=== PATIENT | female | born 1955 | race Caucasian/White ===

== ENCOUNTER → 2019-03-10 | Outpatient (CLI) | payer MEDICARE ==
--- NOTE | 2019-03-11 14:48 | RAD ---
DATE: 03/10/2019 EXAM: MAMMO ZAIDA SCREENING BILATERAL HISTORY: Routine screening COMPARISON: 09/02/2017 This study was interpreted with the benefit of Computerized Aided Detection (CAD). Breast Density: FATTY The breast parenchyma is primarily fatty replaced. Breast parenchyma level density A. FINDINGS: 2-D and 3-D tomosynthesis imaging was performed in CC and MLO projections. No new or enlarging breast nodules are seen. Benign type calcifications are again noted. No suspicious microcalcifications have developed. IMPRESSION: Stable mammograms without evidence of malignancy. BI-RADS CATEGORY: 2 BENIGN FINDING(S) RECOMMENDED FOLLOW-UP: 12M 12 MONTH FOLLOW-UP PQRS compliance statement: Patient information was entered into a reminder system with a target due date for the next mammogram. Mammography is a sensitive method for finding small breast cancers, but it does not detect them all and is not a substitute for careful clinical examination. A negative mammogram does not negate a clinically suspicious finding and should not result in delay in biopsying a clinically suspicious abnormality. "Our facility is accredited by the [employer]."
== END | disposition home or self-care (01) ==
LOC: MAMMO 13:07
PROVIDERS: ATTEND Family Medicine
DX: Z12.31 Encounter for screening mammogram for malignant neoplasm of breast (principal); N64.89 Other specified disorders of breast
CPT/HCPCS: 77063; 77067

== ENCOUNTER → 2019-04-07 | Outpatient (CLI) | payer MEDICARE ==
[~2019-04-07] MED LIST: ZOLPIDEM 5 MG TABLET. PO ONE
--- NOTE | 2019-04-08 13:38 | SLEEP ---
DATE OF STUDY: 04/07/2019 POLYSOMNOGRAM OBJECTIVE: The patient is a 64-year-old female with insomnia, snoring. Vernon sleep score 2. Height 5 feet 3 inches, weight 230 pounds and body mass index 41. INTERPRETATION: Sleep architecture is characterized by sleep efficiency of 31% across the 7.3 hours of recording time. There is absence of REM sleep. Sleep onset latency is 75 minutes. Respiratory monitoring shows a total of 71 events for an apnea-hypopnea index of 31.8 events per hour of sleep. The vast majority of these events are obstructive. The minimum oxygen saturation is 82%. Periodic limb movements of sleep occur at the rate of 30 per hour, 3 per hour associated with arousal. No cardiac arrhythmias are observed. IMPRESSION: Abnormal polysomnogram, showing obstructive sleep apnea and hypopnea, but the patient has a very poor sleep efficiency and does not achieve REM sleep, implying an independent problem with insomnia. Therefore, CPAP titration was not attempted. The patient did receive 5 mg of Ambien at the start of the study. RECOMMENDATIONS: 1. The patient could be returned for a CPAP titration study. 2. The insomnia should be addressed. 3. The patient should avoid sedatives and alcohol in general, though, and also pursue weight loss. Thank you for letting us help with the patient's care. RAJIV BENNETT MD DR: GIAN/nakul JOB#: [id number] / [id number] Dr. AMAURY Arambula MICHAEL MD
== END | disposition home or self-care (01) ==
LOC: RT 18:51
PROVIDERS: ATTEND Family Medicine
DX: G47.33 Obstructive sleep apnea (adult) (pediatric) (principal)
CPT/HCPCS: 95810

== ENCOUNTER → 2019-05-13 | Day surgery (SDC) | payer MEDICARE ==
[~2019-05-13] MED LIST changes: +ATOR40TA59 PO; +IV RINGERS,LACTATED 1000ML 1,000 ML IV SCH; +LISI1TAB7 PO; +PROPOFOL 20 ML IV ONE; -ZOLPIDEM 5 MG TABLET. PO ONE
[2019-05-13 09:26] VITALS: BP 102/53
== END ==
LOC: ENDOS 07:23
PROVIDERS: ATTEND Internal Medicine Gastroenterology
DX: Z12.11 Encounter for screening for malignant neoplasm of colon (principal); K57.30 Diverticulosis of large intestine without perforation or abscess without bleeding; K64.0 First degree hemorrhoids; F17.210 Nicotine dependence, cigarettes, uncomplicated; Z86.010 Personal history of colon polyps; Z72.89 Other problems related to lifestyle; Z90.49 Acquired absence of other specified parts of digestive tract; Z98.890 Other specified postprocedural states
CPT/HCPCS: G0105; J2704; 45378

== ENCOUNTER → 2019-06-03 | Outpatient (CLI) | payer MEDICARE ==
[2019-05-13 09:26] VITALS: BP 102/53
[~2019-06-03] MED LIST changes: -IV RINGERS,LACTATED 1000ML 1,000 ML IV SCH; -PROPOFOL 20 ML IV ONE; +ZOLPIDEM 5 MG TABLET. PO ONE
--- NOTE | 2019-06-04 12:55 | SLEEP ---
DATE OF STUDY: 06/03/2019 SLEEP STUDY ATTENDING PHYSICIAN: Richard Nava MD The patient is 64 years old, who weighs 232 pounds with a BMI of 43. The patient's Huntington score was 3. The patient had previous sleep study and was found to have severe CARLA at an AHI of 31.8 per hour. The patient returned for in-lab CPAP titration study. During the night study, the patient spent 419 minutes in bed and slept for 182 minutes with a low-sleep efficiency of 43%. Sleep latency was 71 minutes, which was prolonged with a REM latency of 205 minutes. Overall, sleep architecture showed normal stage 1 and stage 2 sleep, increased slow wave and reduced REM sleep. During the night study, the patient's EKG monitoring revealed an average heart rate of 81 beats per minute and no sustained arrhythmia was observed. PLMS were seen at index of 74 per hour and 7 per hour caused EEG arousal. The patient was started on CPAP at a pressure of 7-cm water as she was unable to tolerate lower pressure. Pressure was increased all the way up to 20-cm water. At that time, the patient's sleep apnea did improve; however, she could not tolerate pressure beyond 20-cm water and was unable to exhale. As a result, she was switched to BiPAP, but she could not return to sleep to have BiPAP titration. I would recommend the patient should be placed on an auto-BiPAP with a download followup. IMPRESSION: 1. Severe sleep apnea diagnosed by previous sleep study. 2. Severe periodic limb movements in sleep. 3. Reduced sleep efficiency of 43%, resulting from sleep onset and sleep maintenance insomnia. RECOMMENDATIONS: 1. Optimum CPAP pressure was not achieved on this split-night study despite reaching 20-cm water. The patient became intolerant to higher CPAP pressure and was having difficulty in exhaling against that pressure. I would recommend that the patient should be placed on auto-BiPAP at a maximum IPAP pressure of 24 with a minimum EPAP pressure of 18 with pressure support of 4. 2. The patient should have a download data in 30 days to assess the efficacy of the current BiPAP pressure. 3. PLMS can be treated with dopaminergic agonist agents if the patient is clinically symptomatic or has symptoms of restless legs during the day. 4. If the patient's insomnia persists despite effective use of BiPAP, then it should be treated according to the etiology. GIANFRANCO WOOD MD DR: SEUN/nakul JOB#: [id number] / [id number] RICHARD Gonsales MD
== END | disposition home or self-care (01) ==
LOC: RT 18:59
PROVIDERS: ATTEND Family Medicine
DX: G47.33 Obstructive sleep apnea (adult) (pediatric) (principal)
CPT/HCPCS: 95811

== ENCOUNTER → 2021-04-06 | Outpatient (CLI) | payer MEDICARE ==
[2019-05-13 09:26] VITALS: BP 102/53
[~2021-04-06] MED LIST changes: +LISI1TAB20 PO; -LISI1TAB7 PO; -ZOLPIDEM 5 MG TABLET. PO ONE
--- NOTE | 2021-04-06 16:25 | RAD ---
EXAM: BILATERAL DIGITAL 3D SCREENING MAMMOGRAPHY. HISTORY: Routine mammographic screening. TECHNIQUE: Bilateral digital 3D and tomographic images were obtained in CC and MLO projections. Compu ter-aided detection was applied. COMPARISON: 03/10/2019, 09/02/2017. COMPOSITION: A. The breasts are almost entirely fatty. FINDINGS: There are no suspicious masses, microcalcifications or architectural distortion. The parenc hymal pattern is stable. Coarse and scattered calcifications are benign. BI-RADS CATEGORY 2: Benign. RECOMMENDATION: 1. Routine screening mammography in one year. If mammography demonstrates dense breast tissue (heterogenously dense or extremely dense, category C or D), which could hide abnormalities, and if other risk factors for breast cancer have been identifi ed, supplemental screening tests that may be suggested by the ordering physician may be of benefit. D ense breast tissue, in and of itself, is a relatively common condition. Therefore, this information i s not provided to cause undue concern, but rather to raise awareness and to promote discussion with t he referring physician regarding the presence of other risk factors, in addition to dense breast tiss ue. The results of this mammography examination is provided to the patient and referring physician. T he patient should contact their referring physician if any questions or concerns exist regarding this report. PQRS compliance statement - Patient information was entered into a reminder system with a target due date for the next mammogram. "Our facility is accredited by the [employer]." Electronically signed by: Modesta Jenkins MD (04/06/2021 4:22 PM) [id number]
== END ==
LOC: MAMMO 15:57
PROVIDERS: ATTEND Family Medicine
DX: Z12.31 Encounter for screening mammogram for malignant neoplasm of breast (principal)
CPT/HCPCS: 77063; 77067

== ENCOUNTER → 2021-05-24 | Outpatient (CLI) | payer MEDICARE ==
[2019-05-13 09:26] VITALS: BP 102/53
--- NOTE | 2021-05-24 14:57 | KCIC ---
EXAM: CT CHEST WITHOUT CONTRAST (LDCT LUNG CANCER SCREENING). HISTORY: Risk factors for pulmonary malignancy. 30+-pack-year history of smoking. TECHNIQUE: CT of the chest was performed without intravenous contrast using a low-dose lung screening protocol. Findings analysis is based on ACR Lung-RADS v1.1. *One or more of the following individual ized dose reduction techniques were utilized for this examination: 1. Automated exposure control. 2. Adjustment of the mA and/or kV according to patient size. 3. Use of iterative reconstruction technique. COMPARISON: None. FINDINGS: Nodules: No suspicious noncalcified lung nodules are identified. No pneumothorax, pleural effusion, o r focal infiltrate is seen. There is a calcified granuloma in the right middle lobe. Calcified lymph nodes in the right hilum are also noted. Heart size is normal. Coronary calcification is noted. Limi akilah visualization of the upper abdomen is unremarkable. No acute osseous findings are identified. IMPRESSION/RECOMMENDATION: 1. ACR Lung-RADS category: 1 2. Continue annual screening with LDCT in 12 months. Electronically signed by: José Perea MD (05/24/2021 2:55 PM) [id number]
== END ==
LOC: KCIC CT 13:15
PROVIDERS: ATTEND Family Medicine
DX: Z12.2 Encounter for screening for malignant neoplasm of respiratory organs (principal); J84.10 Pulmonary fibrosis, unspecified; I25.10 Atherosclerotic heart disease of native coronary artery without angina pectoris; R59.9 Enlarged lymph nodes, unspecified; F17.210 Nicotine dependence, cigarettes, uncomplicated
CPT/HCPCS: 71271

== ENCOUNTER → 2021-06-13 | Outpatient (CLI) | payer MEDICARE ==
[2019-05-13 09:26] VITALS: BP 102/53
--- NOTE | 2021-06-13 17:31 | CARD ---
MR#: [id number] Date of Study: 06/13/2021 Ordering Physician: ARCELIA COCHRAN, Referring Physician: ARCELIA COCHRAN, Tech: Veronica Omar, [facility] APPROVED REPORT EXAM: Two-dimensional and M-mode echocardiogram with Doppler and color Doppler. Other Information Quality : AverageHR: 82bpm Technically limited study due to INDICATION Hypertension/HCVD RISK FACTORS Hyperlipidemia Smoking 2D DIMENSIONS RVDd3.2 (2.9-3.5cm)Left Atrium(2D)3.1 (1.6-4.0cm) IVSd1.0 (0.7-1.1cm)Aortic Root(2D)3.2 (2.0-3.7cm) LVDd4.3 (3.9-5.9cm)LVOT Diameter2.1 (1.8-2.4cm) PWd0.9 (0.7-1.1cm)LVDs2.4 (2.5-4.0cm) FS (%) 42.4 %SV59.7 ml Aortic Valve AoV Peak Melvin.152.0cm/sAoV VTI30.2cm AO Peak GR.9.2mmHgLVOT Peak Melvin.109.7cm/s LVOT VTI 20.39cmAO Mean GR.5mmHg GREGORIO (VMAX)1.82zv1TTX (VTI)2.33cm2 Mitral Valve MV E Vmqgxilm65.4cm/sMV DECEL QAOU621sf MV A Fhtykkig291.6cm/sMV E Mean Gr.3mmHg MV ZDE14seZ/A Ratio0.7 MVA (PHT)2.33cm2 TDI E/Lateral E'8.1E/Medial E'9.7 Pulmonary Valve PV Peak Cecooers27.3cm/sPV Peak Grad.4mmHg Tricuspid Valve TR P. Zlkbzxft908zh/sRAP HOBJPVYY3gmHo TR Peak Gr.45ouGcHCPB74jmPh Pulmonary Vein S1 Szdyabvo60.7cm/sD2 Ljsbrunc60.9cm/s PVa [id number] LEFT VENTRICLE The left ventricle is normal size. There is normal left ventricular wall thickness. The left ventricu lar systolic function is normal and the ejection fraction is within normal range. The Ejection Fracti on is 60-65%. There is normal LV segmental wall motion. Transmitral Doppler flow pattern is Grade I-a bnormal relaxation pattern. RIGHT VENTRICLE The right ventricle is normal size. There is normal right ventricular wall thickness. The right ventr icular systolic function is normal. ATRIA The left atrium size is normal. The right atrium size is normal. The interatrial septum is intact wit h no evidence for an atrial septal defect or patent foramen ovale as noted on 2-D or Doppler imaging. AORTIC VALVE The aortic valve is normal in structure and function. Doppler and Color Flow revealed no significant aortic regurgitation. There is no significant aortic valvular stenosis. Calculated aortic valve area is 2.07 cm2 with maximum pressure gradient of 12 mmHg and mean pressure gradient of 6 mmHg. MITRAL VALVE The mitral valve is normal in structure and function. Mitral annular calcification is mild. There is no evidence of mitral valve prolapse. There is no mitral valve stenosis. Doppler and Color Flow revea led no mitral valve regurgitation noted. TRICUSPID VALVE The tricuspid valve is normal in structure and function. Doppler and Color Flow revealed trace tricus pid regurgitation with an estimated PAP of 23 mmHg. There is no tricuspid valve stenosis. PULMONIC VALVE The pulmonic valve is not well visualized. Doppler and Color Flow revealed no pulmonic valvular regur gitation. GREAT VESSELS The aortic root is normal in size. The IVC is normal in size and collapses >50% with inspiration. PERICARDIAL EFFUSION There is no evidence of significant pericardial effusion. Critical Notification Critical Value: No <Conclusion> The left ventricle is normal size. The left ventricular systolic function is normal and the ejection fraction is within normal range. The Ejection Fraction is 60-65%. There is normal LV segmental wall motion. Doppler and Color Flow revealed no significant aortic regurgitation. There is no significant aortic valvular stenosis. Doppler and Color Flow revealed no mitral valve regurgitation noted. Doppler and Color Flow revealed trace tricuspid regurgitation with an estimated PAP of 23 mmHg. Signed by : Yaw Peterson MD Electronically Approved : 06/13/2021 17:31:11
== END ==
LOC: ECHO 13:32
PROVIDERS: ATTEND Internal Medicine Cardiovascular Disease
DX: I05.8 Other rheumatic mitral valve diseases (principal); I10 Essential (primary) hypertension
CPT/HCPCS: 93306